=== PATIENT | male | born 1975 | race Caucasian/White ===

== ENCOUNTER 2019-11-25 21:50 | Inpatient (IN) | payer SELFPAY ==
[~2019-11-25 21:50] MED LIST: Dexamethasone 20 MG/5 ML VIAL ONE; Ketorolac Tromethamine 30 MG/ML VIAL ONE; Metoclopramide HCl 10 MG/2 ML VIAL ONE; Ondansetron PF 4 MG/2 ML Vial ONE; PHENYLEPHRINE-NS 100 MCG/ML 10 ML SYRINGE ONE; PROPOFOL 200 MG/20 ML VIAL ONE; Succinylcholine Chloride 20 MG/ML 10 ml SYRINGE FS ONE
[2019-11-25] MEDS ORDERED: Bupivacaine PF 0.5% 30 ML VIAL ONE (22:00)
[2019-11-25] MEDS ORDERED: Sodium Chloride 0.9% 50 ML ONE (22:00)
[2019-11-25] MEDS ORDERED: Bacitracin Zinc Ointment 30 gm TUBE ONE (22:00)
[2019-11-25] MEDS ORDERED: Morphine 4 MG/ML VIAL SLOW IVP PRN (23:14)
[2019-11-25] MEDS ORDERED: Ondansetron PF 4 MG/2 ML Vial IV PRN (23:14)
[2019-11-25] MEDS ORDERED: Fentanyl 100 MCG/2 ML VIAL SLOW IVP PRN (23:14)
[2019-11-25] MEDS ORDERED: Bisacodyl 10 MG SUPP PR PRN (23:14)
[2019-11-25] MEDS ORDERED: Milk Of Magnesia 30 ML UDCUP PO PRN (23:14)
[2019-11-25] MEDS ORDERED: Acetaminophen 325 MG TAB PO PRN (23:14)
[2019-11-25] MEDS ORDERED: Promethazine HCl 25 MG/ML VIAL IM PRN (23:14)
[2019-11-25] MEDS ORDERED: Acetaminophen/Codeine 30-300mg Tablet PO PRN (23:14)
[2019-11-25] MEDS ORDERED: traMADol HCl 50 MG TAB PO PRN (23:14)
[2019-11-25] MEDS ORDERED: Communication Order-Pharmacy FS SCH (23:15)
[2019-11-25] MEDS ORDERED: Midazolam HCl 2 mg/2 ml Vial ONE (23:15)
[2019-11-25] MEDS ORDERED: Fentanyl 250 MCG/5 ML VIAL ONE (23:15)
[2019-11-25] MEDS ORDERED: Meperidine HCl/PF 25 MG/ML VIAL IM PRN (23:33)
[2019-11-25] MEDS ORDERED: Ketorolac Tromethamine 30 MG/ML VIAL IVP PRN (23:33)
[2019-11-26] MEDS ORDERED: Sodium Chloride 0.9% 30 ML ONE (00:17)
[2019-11-26] MEDS ORDERED: Sodium Chloride 0.9% 20 ML ONE (00:19)
[2019-11-26] MEDS ORDERED: HYDROmorphone 2 MG/ML VIAL SLOW IVP PRN (01:51)
[2019-11-26] MEDS ORDERED: Promethazine HCl 25 MG/ML VIAL IM PRN (01:51)
[2019-11-26] MEDS ORDERED: Ondansetron HCl/PF 4 MG/2 ML Vial IVP PRN (01:51)
[2019-11-26] MEDS ORDERED: Meperidine HCl/PF 25 MG/ML VIAL SLOW IVP PRN (01:51)
[2019-11-26] MEDS: Ketorolac Tromethamine 30 MG/ML VIAL IVP SCH ×5 (02:41→23:00)
[2019-11-26 03:00] VITALS: BMI 29.3
[2019-11-26] MEDS: HYDROcodone/Acetaminophen 5/325 mg Tablet PO PRN (03:48)
[2019-11-26 06:05] LABS: #Lymphocytes 1.3 thou/uL (1.20-3.40); #Monocytes 0.4 thou/uL (0.11-0.59); #Neutrophils 14.8 thou/uL (1.40-6.50); %Basophils 0.1 % (0.0-1.0); %Eosinophils 0.2 % (0.0-10.0); %Monocytes 2.1 % (0.0-10.0); %Neutrophils 89.6 % (42.0-75.0); Hemoglobin 14.3 g/dL (14.0-18.0); Mean Corpuscular HGB CONC 32.6 g/dL (32.0-36.0); Mean Corpuscular Hemoglobin 28.7 pg (27.0-31.0); Mean Platelet Volume 7.9 fL (7.4-10.4); Platelet Count 218 thou/uL (130-400); RBC Distribution Width 12.2 % (11.5-14.5); Red Blood Cell (RBC) Count 4.98 mill/uL (4.70-6.10); White Blood Cell (WBC) Count 16.5 thou/uL (4.8-10.8)
[2019-11-26 06:11] LABS: PTT 25.1 sec (22.9-36.1); Prothrombin Time 13.1 sec (12.0-14.7)
[2019-11-26] MEDS: Gentamicin Sulfate 80 MG in Premix Bag 1 BAG IVPB SCH ×3 (06:21→22:50)
[2019-11-26 06:26] LABS: ALT (SGPT) 25 U/L (8-55); AST (SGOT) 53 U/L (5-34); Albumin 3.9 g/dL (3.5-5.0); Alkaline Phosphatase 88 U/L (40-110); Anion Gap 13 mmol/L (10-20); BUN (Urea Nitrogen) 15 mg/dL (8.9-20.6); Bilirubin, Total 0.8 mg/dL (0.2-1.2); Calc. Creatinine Clearance 146 mL/min (70-130); Calcium 8.9 mg/dL (7.8-10.44); Carbon Dioxide 21 mmol/L (22-29); Chloride 108 mmol/L (98-107); Estimated GFR-MDRD 74; Globulin 3.4 g/dL (2.4-3.5); Glucose 135 mg/dL (70-105); Potassium 4.8 mmol/L (3.5-5.1); Protein, Total 7.3 g/dL (6.0-8.3); Sodium 137 mmol/L (136-145)
[2019-11-26] MEDS ORDERED: Vancomycin 1 GM in Premix Bag 1 BAG IVPB SCH (09:00)
[2019-11-26] MEDS ORDERED: TETANUS AND DIPHTHERIA TOX/PF 0.5 ML DISP.SYRIN IM SCH (09:00)
[2019-11-26] MEDS: Aspirin 81 mg Enteric Coated Tablet PO SCH ×2 (09:25→19:46)
--- NOTE | 2019-11-26 09:26 | RAD ---
RIGHT WRIST 2 VIEWS: INDICATION: Right wrist pinning. COMPARISON: Right wrist radiograph dated 11/25/2019. FINDINGS: Since the comparison examination, there has been interval percutaneous pinning at the displaced dista l radial metaphyseal fracture. Ulnar styloid process is not as well seen. Total fluorosocpic time i s 25 seconds. Total exposure is 0.62 mGy. IMPRESSION: Intraoperative C-arm radiograph of the right wrist for percutaneous pinning of the distal right radia l fracture. POS: [facility]
[2019-11-26] MEDS: Vancomycin HCl 1.75 GM in Sodium Chloride 0.9% 500 ML IVPB SCH ×2 (12:10→19:45)
[2019-11-27] MEDS: Vancomycin HCl 1.75 GM in Sodium Chloride 0.9% 500 ML IVPB SCH ×3 (03:09→20:24)
[2019-11-27] MEDS: Gentamicin Sulfate 80 MG in Premix Bag 1 BAG IVPB SCH ×3 (06:21→16:28)
[2019-11-27] MEDS: Aspirin 81 mg Enteric Coated Tablet PO SCH ×2 (08:19→20:24)
[2019-11-27 11:50] LABS: Vancomycin, Trough 17.8 ug/mL
[2019-11-27] MEDS: HYDROcodone/Acetaminophen 5/325 mg Tablet PO PRN (20:24)
[2019-11-28] MEDS: Gentamicin Sulfate 80 MG in Premix Bag 1 BAG IVPB SCH ×3 (00:15→17:37)
[2019-11-28] MEDS: Vancomycin HCl 1.75 GM in Sodium Chloride 0.9% 500 ML IVPB SCH ×2 (04:58→12:52)
[2019-11-28] MEDS: Aspirin 81 mg Enteric Coated Tablet PO SCH (08:59)
[2019-11-28] MEDS ORDERED: Ketorolac Tromethamine 30 MG/ML VIAL ONE (12:31)
[2019-11-28] MEDS ORDERED: PROPOFOL 200 MG/20 ML VIAL ONE (12:31)
[2019-11-28] MEDS ORDERED: Lidocaine 1% PF 5 ML VIAL ONE (12:31)
[2019-11-28] MEDS ORDERED: Ondansetron PF 4 MG/2 ML Vial ONE (12:31)
[2019-11-28] MEDS ORDERED: Dexamethasone 20 MG/5 ML VIAL ONE (12:31)
[2019-11-28] MEDS ORDERED: Bacitracin Zinc Ointment 30 gm TUBE ONE ×2 (17:10→22:44)
[2019-11-28] MEDS ORDERED: Bupivacaine PF 0.5% 30 ML VIAL ONE (17:10)
[2019-11-28] MEDS ORDERED: Sodium Chloride 0.9% 10 ML ONE (17:10)
[2019-11-28] MEDS ORDERED: Sodium Chloride 0.9% 30 ML ONE (17:35)
[2019-11-28] MEDS ORDERED: Fentanyl 100 MCG/2 ML VIAL ONE ×4 (18:01→22:38)
[2019-11-28] MEDS ORDERED: Midazolam HCl 2 mg/2 ml Vial ONE (18:04)
[2019-11-28] MEDS ORDERED: Meperidine HCl/PF 25 MG/ML VIAL SLOW IVP PRN (20:47)
[2019-11-28] MEDS ORDERED: Ondansetron HCl/PF 4 MG/2 ML Vial IVP PRN (20:47)
[2019-11-28] MEDS ORDERED: Promethazine HCl 25 MG/ML VIAL SLOW IVP PRN (20:47)
[2019-11-28] MEDS ORDERED: Promethazine HCl 25 MG/ML VIAL IM PRN (20:47)
[2019-11-28] MEDS ORDERED: HYDROmorphone 2 MG/ML VIAL SLOW IVP PRN (20:47)
--- NOTE | 2019-11-28 21:35 | RAD ---
Exam: XR Wrist Rt 2 View HISTORY: Right wrist fracture and pinning. COMPARISON: Intraoperative fluoroscopic images of the right wrist on 11/25/2019 FINDINGS: Previously seen pins transfixing the fracture involving the distal right radial metaphysis have been removed. A volar plate and screws now transfix the fracture of the distal radial metaphysis with improvement in alignment of the fracture fragments. 2 metallic pins are now seen transfixing the frac ture of the ulnar styloid process. No hardware complication is seen. Subcutaneous emphysema seen about the wrist. Correlation with intraoperative findings is recommended. Fluoroscopy: Time-2 minutes and 45 seconds Dose-3.09 mGy
[2019-11-28] MEDS ORDERED: Mineral Oil Sterile 10ML 10 ML UDCUP ONE (22:20)
[2019-11-28] MEDS ORDERED: Thrombin 5000 UNITS/5 ML VIAL ONE (22:32)
[2019-11-29] MEDS: Gentamicin Sulfate 80 MG in Premix Bag 1 BAG IVPB SCH ×2 (00:24→08:31)
[2019-11-29] MEDS: Vancomycin HCl 1.75 GM in Sodium Chloride 0.9% 500 ML IVPB SCH ×2 (00:24→04:57)
[2019-11-29] MEDS: Aspirin 81 mg Enteric Coated Tablet PO SCH ×2 (00:24→08:31)
[2019-11-29 11:23] VITALS: BP 133/70; TEMP 98.2
--- NOTE | 2019-11-30 15:21 | OP ---
DATE OF PROCEDURE: 11/28/2019 PREOPERATIVE DIAGNOSES: On the right side, 1. Open distal radius fracture. 2. 100% displaced ulnar styloid fracture. 3. 40 cm open wound to include VAC dressing, dorsal, palmar, and on the left side, 2.5 cm open wound. All wounds have been debrided in a previous surgery, approximately 48 hours prior to this with no fevers, chills, or elevated white count seen. The patient denies numbness or tingling after the serious dog bite injury. PROCEDURES PERFORMED: 1. On the right side, an open reduction and internal fixation of distal radius fracture. 2. Open reduction and internal fixation of ulnar styloid fracture. 3. Debridement of wound down to and including the bone. 4. Closure of wound, 40 cm. 5. 3.5 x 1.5 full thickness skin graft over the palmar central forearm at the end of the procedure. BLOOD LOSS: 1 mL. TOURNIQUET TIME: 27 minutes. SPECIMEN: Otherwise none. FINDINGS: No abscess and no necrosis. DESCRIPTION OF PROCEDURE: After successful general endotracheal anesthesia, the limb was prepped and draped. Time-out was done appropriately. We then prepped and draped the right side completely. We prepped the left side as the right side was being closed in preparation for wound evaluation. We took the patient's VAC dressing off during the prep phase, we exposed and revaluated each wound, found a small hematoma at best but no other gross infection or abscess. Since the patient on the floor had no such problems, he is a candidate for final fixation. We made an incision over the palmar areas, reconnecting the skin and we were able to find all the surgical wounds, this included inspecting an open capitate impression fracture, lack of scaphoid comminution, but an ulnar styloid fracture 100% displaced without widening of the distal radioulnar joint. Left side had been prepped also. First, we finished debriding the wounds by opening them all, dissected down to the joint and all tissue planes, debriding of small amount of denuded muscle. The fracture line was approximately 1 cm short of the distal radius to carpal joint line, but once we finished debridement to include the capitate impression fracture, it was almost 1 cm deep, but oblique, we focused our attention on bone work. First, we closed the retinaculum dorsally just before we placed a Synthes 5-hole subjacent to the radiocarpal joint and three holes down the shaft and had excellent apposition and . We were able to demonstrate that the patient had excellent reduction except for some gap, which we felt might be secondary to the actual loss from the bite. This area had been intensely curetted and debrided x2. We felt it was clean enough for fixation as well as possible bone grafting, so the 5-hole plate was secured first in the center, almost distal to the proximal 3 holes, and using drill and screw techniques, we placed 5-hole subjacent to the joint in the frontal sagittal plane. There was no evidence of violation of the joint. We then finished with the final screw proximally, adjusted for screw length, had excellent construct and then bone grafted major bone graft from the iliac crest the finished products. Now, we had performed distal radius fracture internal fixation with anatomic position. We then made a zigzag incision centered over the ulnar styloid tip, carried through skin and subcutaneous tissue, releasing the fascia as well as the tissue around the ulnar styloid. We placed a heavy #1 Ethibond on the TFCC and brought the tilt and corrected for angulation to include coaptation in the sagittal plane. Once this was done, with the suture acting like a guidewire pulling down, we placed 2 K-wires through the cortex, pulled them back, bent them, and then cut them creating an anatomical reduction attempt with the joint being nearly congruent DRUJ. The patient had had no other complications, after debridement was finished, began closure of all wounds, but first, to include 4-0 and 3-0 nylon alternating as needed until we had completed the closure. Then, a sugar-tong splint was applied along with bulky dressing and the patient was able to urinate and had no evidence of anesthetic or operative complication. Job ID: [id number]
== END 2019-11-29 12:05 | disposition home or self-care (01) | DRG 512 ==
LOC: ERS 21:50 → SDC/OP 23:39 → SURG A 23:40
PROVIDERS: ADMIT Orthopaedic Surgery Hand Surgery; ATTEND Orthopaedic Surgery Hand Surgery
PROC: 0PSH04Z Reposition Right Radius with Internal Fixation Device, Open Approach (ICD-10-PCS; principal; 2019-11-28)
PROC: 0PSK04Z Reposition Right Ulna with Internal Fixation Device, Open Approach (ICD-10-PCS; 2019-11-28)
DX: S52.501B Unspecified fracture of the lower end of right radius, initial encounter for open fracture type I or II (principal); F41.9 Anxiety disorder, unspecified; F17.210 Nicotine dependence, cigarettes, uncomplicated; S52.611B Displaced fracture of right ulna styloid process, initial encounter for open fracture type I or II; S61.451A Open bite of right hand, initial encounter; W54.0XXA Bitten by dog, initial encounter
CPT/HCPCS: 36415; 76000; 80053; 80202; 85025; 85610; 85730; 99284; C1713; J1100; J1580; J1885; J2001; J2250; J2405; J2704; J2765; J3010; J3370; J3490; J7030; S0020